=== PATIENT | female | born 1985 | race Caucasian/White ===

== ENCOUNTER 2016-08-30 10:39 | Emergency (ER) | payer OTHER ==
[~2016-08-30 10:39] MED LIST: ANUSOL-HC CREAM30 G1 EXT; DOC-Q-LACE100 MG PO; FLEXERIL10 MG PO; IBUPROFEN PO; NO MEDICATIONS; NORCO1 TAB 10/3 DOB; PERMETHRIN 5% TOP; VICODIN 5/1 TAB 5/50 PO; VOLTAREN75 MG PO
[2016-08-30] MEDS ORDERED: BIRTH CONTROL PILL (10:40)
== END 2016-08-30 11:27 | disposition home or self-care (01) ==
LOC: SED 10:39
DX: M54.41 Lumbago with sciatica, right side (principal); R03.0 Elevated blood-pressure reading, without diagnosis of hypertension; F17.200 Nicotine dependence, unspecified, uncomplicated
CPT/HCPCS: 96372; 99283; J1885